=== PATIENT | female | born 2000 | race Caucasian/White ===

== ENCOUNTER 2023-06-12 17:43 | Emergency (ER) | payer OTHER, MEDICARE, SELFPAY ==
--- NOTE | 2023-06-12 23:37 | ED.GENMED ---
History of Present Illness
General
Chief Complaint: Eye Problems
Source: patient
Exam Limitations: none
Time Seen by Provider: 06/12/23 18:07
Nursing documentation reviewed up to this point in time: agreed with
Travel History
Have you had any contact with someone who has COVID-19?: No
Do you have any symptoms of coronavirus? Fever > 100 degrees, chills, cough, shortness of breath, sore throat, loss of taste or smell, muscle aches, or headache?: No
History of Present Illness
History of Present Illness:
Patient accidentally hit over right orbit by sons head. States her contact dislodged and she cant remove it. Brought selft to ED for eval. I njury occurred just [employer].
Past History
Past History
ED Past Medical History: Asthma, Psychiatric and Other (ADHD, posttraumatic stress disorder, anxiety, depression, Cystitis, Ovarian cyst)
ED Past Surgical History: None
Social History
Tobacco: Vaping
Alcohol: Occasional
Drug: None
Personal: Single
Living: with family
Review of Systems
Review of Systems
Allergies reviewed?: Yes
All Other Systems: ROS reviewed and negative except as documented in HPI and ROS
Constitutional: Reports no symptoms
EENT: Reports other (right eye foreign body sensation. Unable to remove contact lens)
Musculoskeletal: Reports no symptoms
Skin: Reports no symptoms
Neurological: Reports no symptoms
Psychiatric: Reports no symptoms
Phy Exam
General Physical Exam
General Presentation: well appearing and mild distress
General age: appears stated age
General Skin: warm and dry
General Habitus: normal
General Mental: alert
Eye Exam
Eye Exam: PERRL, EOMI, cornea clear, conjunctiva normal, globe normal and other (Lids everted. COntact removed from under right upper lid with qtip. Contact was split in half. Both pieces retrieved. Eye stained, examined under slit lamp, no
abrasion noted.)
Eye Exam General: PERRL: bilateral
Conjunctival Changes: right: watery discharge
Cornea Exam: foreign body: Right (contact lens)
Type of Exam: slit lamp, simple and fluorescein
Musculoskeletal Exam
Musculoskeletal Exam: full ROM and neuro vasc intact
Skin Exam
Skin Exam: normal color, warm/dry and no rash
Psychiatric Exam
Psychiatric Exam: normal mood/affect
Course
Orders/Labs/Results
Orders:
Orders
06/12/23 18:14
Fluorescein Sodium [Ful-Anita] 1 mg .ROUTE .STK-MED ONE
Tetracaine HCl [Tetracaine 0.5% Ophthalmic Solution] 1 drop .ROUTE .STK-MED ONE
Vital Signs
Initial and Last Documented VS:
Initial Vital Signs
Temp Pulse Resp BP Pulse Ox
99.8 F 112 16 140/91 97
06/12/23 17:44 06/12/23 17:44 06/12/23 17:44 06/12/23 17:44 06/12/23 17:44
Last Documented Vital Signs
Temp Pulse Resp BP Pulse Ox
99.8 F 112 16 140/91 97
06/12/23 17:44 06/12/23 17:44 06/12/23 17:44 06/12/23 17:44 06/12/23 17:44
*Critical Care Note
Total Time (30-74mins, 75-104mins- exclusive of procedures): Not Applicable
ED Attending Note
-
Portions of this chart may have been created with voice recognition software.� Occasional wrong word or��sound alike� substitutions may have occurred due to the inherent limitations of voice recognition software.
Discharge Plan
Departure
Patient Disposition: Home (Routine Discharge)
Date of Disposition: 06/12/23
Time of Disposition: 18:20
Patient with high blood pressure during this ER visit?: No
Condition: Good
Covid-19: Not Applicable
Discharge Problem:
Contact lens stuck
Instructions: Foreign Body in Eye (DC)
Prescriptions:
No Action
clonazepam 0.5 MG tablet
0.5 mg PO DAILY
dexmethylphenidate [Focalin XR] 35 MG capsule,ER biphasic 50-50
35 mg PO DAILY
lurasidone [Latuda] 20 MG tablet
40 mg PO DAILY
95-iron [id number] [ + DHA] 1 EACH combo pack
1 ea PO DAILY
Activity Restrictions/Additional Instructions:
Keep contacts out for 24 hours. Follow up with your eye doctor as needed.
Interventions
Interventions:
*Risk Screen - Suicide Last Done: 06/12/23 18:42
*General Assessment Last Done: 06/12/23 17:44
*Neglect/Abuse Screening Last Done: 06/12/23 18:42
ED- Fall Risk Assessment Last Done: 06/12/23 18:43
*ED COVID-19 Vaccine History Last Done: 06/12/23 17:44
*Nursing Disposition Last Done: 06/12/23 18:42
Discharge Date and Time
Discharge Date/Time: 06/12/23 18:43
== END 2023-06-12 18:43 | disposition home or self-care (01) ==
LOC: EMR 17:43
PROVIDERS: EMERGENCY PHYSICIAN Nurse Practitioner; FAMILY PHYSICIAN Family Medicine
DX: T15.91XA Foreign body on external eye, part unspecified, right eye, initial encounter (principal); W44.G9XA Other non-organic objects entering into or through a natural orifice, initial encounter; Y77.11 Contact lens associated with adverse incidents; F17.290 Nicotine dependence, other tobacco product, uncomplicated
CPT/HCPCS: 99283

== ENCOUNTER 2024-04-20 06:09 | Emergency (ER) | payer OTHER, MEDICARE, SELFPAY ==
[2024-04-20 06:55] LABS: COVID-19 Antigen Negative (Negative)
[2024-04-20] MEDS: TORADOL 15 MG IV (07:54)
--- NOTE | 2024-04-20 07:58 | ED.GENMED ---
History of Present Illness
General
Chief Complaint: Chest Problem
Source: patient
Exam Limitations: none
Time Seen by Provider: 04/20/24 07:01
Nursing documentation reviewed up to this point in time: agreed with
History of Present Illness
History of Present Illness:
Patient with history of exercise-induced asthma, presents to ED secondary to persistent cough, shortness of breath, and left-sided chest pain over the past 1 month. Patient states that her symptoms started after her child got sick. Patient was
evaluated by her primary care physician and was empirically started on Zithromax yesterday with potential pneumonia. Denies fever or chills. Denies nausea, vomiting, or diarrhea. However, patient does report decreased appetite. Denies leg pain
or swelling. Denies recent travel or surgery.
Past History
Past History
ED Past Medical History: Asthma, Psychiatric and Other (ADHD, posttraumatic stress disorder, anxiety, depression, Cystitis, Ovarian cyst)
ED Past Surgical History: None
Social History
Tobacco: Vaping
Alcohol: Occasional
Drug: None
Personal: Single
Living: with family
Review of Systems
Review of Systems
Allergies reviewed?: Yes
All Other Systems: ROS reviewed and negative except as documented in HPI and ROS
Constitutional: Reports no symptoms; Denies fever or chills
EENT: Reports no symptoms
Respiratory: Reports cough and trouble breathing
Cardiac: Reports chest pain
ABD/GI: Reports no symptoms
: Reports no symptoms
Musculoskeletal: Reports no symptoms
Skin: Reports no symptoms
Neurological: Reports no symptoms
Phy Exam
Physical Exam
Physical Exam:
Physical Exam
General: no apparent distress, not acutely ill. afebrile
Head: nc/at. eomi
Neck: supple. no meningeal signs. normal posterior pharynx
Heart: s1/s2 regular rate and rhythm, no murmur. equal radial pulses.
Lungs: no acute respiratory distress. clear bilaterally
Abdomen: normal bowel sounds. not tender.
Neuro: alert and oriented. no focal neurological deficits
Skin: no rash
Psychiatric: well kept. interactive and cooperative
Extremities: no edema. no calf tenderness.
Course
Orders/Labs/Results
Orders:
Orders
04/20/24 06:23
COVID-19 Antigen Urgent
Source: Nasal Swab
Influenza A+B Rapid Molecular Urgent
DARRICK Source: Nasal Swab
Specimen Description:
04/20/24 07:25
0.9% Sodium Chloride 1000 ml [Nss] 1,000 ml IV BOLUS
Albuterol Nebs [Ventolin Nebules] 2.5 mg INH R NOW STA
Ketorolac [Toradol] 15 mg IV NOW STA
Prednisone [Deltasone] 50 mg PO NOW STA
CR Chest - 2 Views Urgent
Comment:
Reason For Exam: cough/cp
04/20/24 07:26
Test Result ONCE
04/20/24 07:27
Guaifenesin/Codeine Solution [Robitussin AC] 10 ml PO NOW STA
04/20/24 07:53
Basic Metabolic Panel Urgent
Bordetella Pertussis IgA,G,M [S] Urgent
Complete Blood Count/With Diff Urgent
D-Dimer Urgent
HCG, Serum Qualitative Screen Urgent
Magnesium Urgent
04/20/24 08:44
Electrocardiogram (*1) Urgent
Reason for Study: QTc Monitoring
EKG- Treatment ONCE
Abnormal Lab Results
04/20/24
07:53
Hgb 10.2 L g/dL
(12.0-16.0)
Hct 33.7 L %
(37.0-47.0)
MCV 70.1 L fL
(81.0-99.0)
MCH 21.2 L pg
(27.0-31.0)
MCHC 30.3 L g/dL
(33.0-37.0)
RDW 16.1 H %
(11.5-14.5)
Plt Count 401 H 10^3/uL
(130-400)
Glucose 113 H mg/dl
(70-99)
04/20/24 07:53
04/20/24 07:53
Vital Signs
Initial and Last Documented VS:
Initial Vital Signs
Temp Pulse Resp BP Pulse Ox
98.4 F 96 18 149/104 100
04/20/24 06:12 04/20/24 06:12 04/20/24 06:12 04/20/24 06:12 04/20/24 06:12
Last Documented Vital Signs
Temp Pulse Resp BP Pulse Ox
98.4 F 85 22 112/69 98
04/20/24 06:12 04/20/24 09:18 04/20/24 09:18 04/20/24 09:18 04/20/24 09:18
MDM/Problems Addressed
MDM/Problems Addressed:
Patient reports significant improvement in symptoms after treatment. Patient with an unremarkable, in ED, including blood work (d-dimer) and chest x-ray. As patient is currently taking Effexor, will check EKG to make sure there is no prolonged QT,
as patient has been prescribed Zithromax, which she will continue.
EKG: NSR. Normal QT
Pertussis test pending. Patient otherwise is afebrile, hemodynamically stable, and without any significant respite distress, at time of discharge. Will advise continual PCP follow-up as an outpatient.
*EKG
Interpreted by ED Provider?: Yes
EKG Intrepretation Date: 04/20/24
Heart Rate: 78
Rate: normal
Rhythm: sinus
[place]: normal axis
Interval: normal interval
QRS Pattern: normal QRS
*Critical Care Note
Total Time (30-74mins, 75-104mins- exclusive of procedures): Not Applicable
ED Attending Note
-
Portions of this chart may have been created with voice recognition software.� Occasional wrong word or��sound alike� substitutions may have occurred due to the inherent limitations of voice recognition software.
Discharge Plan
Departure
Patient Disposition: Home (Routine Discharge)
Date of Disposition: 04/20/24
Time of Disposition: 08:46
Patient with high blood pressure during this ER visit?: Yes
Discharge Problem:
Bronchitis
Instructions: Bronchitis, Adult ED
Prescriptions:
New
prednisone 50 mg tablet
50 mg PO DAILY Qty: 2 0RF
dextromethorphan-guaifenesin [Cough-Chest Congestion DM] 5-100 mg/5 mL liquid
10 ml PO Q8H PRN (Reason: Cough) Qty: 500 0RF
No Action
clonazepam 0.5 MG tablet
0.5 mg PO DAILY
dexmethylphenidate [Focalin XR] 35 MG capsule,ER biphasic 50-50
35 mg PO DAILY
lurasidone [Latuda] 20 MG tablet
40 mg PO DAILY
95-iron [id number]-[id number]-[id number] [ + DHA] 1 EACH combo pack
1 ea PO DAILY
Referrals:
Enrico Callaway MD [Family Provider] -
Activity Restrictions/Additional Instructions:
As discussed, please follow-up with your primary care physician for reevaluation. Your prescriptions have been sent electronically to the [facility] pharmacy in [place].
Interventions
Interventions:
*Risk Screen - Suicide Last Done: 04/20/24 06:12
*General Assessment Last Done: 04/20/24 09:08
*Neglect/Abuse Screening Last Done: 04/20/24 09:08
*ED COVID-19 Vaccine History Last Done: 04/20/24 09:08
*Nursing Disposition Last Done: 04/20/24 09:18
ED- Cardiac Assessment Last Done: 04/20/24 09:10
ED- Pulmonary Assessment Last Done: 04/20/24 09:11
Discharge Date and Time
Discharge Date/Time: 04/20/24 09:20
Print Language: MAORI
[2024-04-20] MEDS: DELTASONE 50 MG PO (07:59)
[2024-04-20] MEDS: ROBITUSSIN AC 10 ML PO (07:59)
[2024-04-20] MEDS: NSS 1000 IV (07:59)
[2024-04-20] MEDS: VENTOLIN NEBULES 2.5 MG INH (08:02)
[2024-04-20 08:15] LABS: % Basophils 0.3 % (0-2); % Eosinophils 1.1 % (0-6); % Immature Granulocytes 0.4 % (0-0.5); % Lymphocytes 34.8 % (20.5-51.1); % Monocytes 4.7 % (1.7-9.3); % Neutrophils 58.7 % (42.2-75.2); Absolute Eosinophils 0.1 10^3/uL (0-0.7); Absolute Lymphocytes 3.2 10^3/uL (1.2-3.4); Absolute Monocytes 0.4 10^3/uL (0.1-0.6); Absolute Neutrophils 5.4 10^3/uL (1.4-6.5); Hematocrit 33.7 % (37.0-47.0); Hemoglobin 10.2 g/dL (12.0-16.0); Mean Corp Hgb Conc. 30.3 g/dL (33.0-37.0); Mean Corpuscular Hgb 21.2 pg (27.0-31.0); Mean Corpuscular Volume 70.1 fL (81.0-99.0); Mean Platelet Volume 10.1 fL (7.4-10.4); Nucleated Red Blood Cells % 0 %; Platelet Count 401 10^3/uL (130-400); Red Blood Cell Count 4.81 10^6/uL (4.20-5.40); Red Cell Dist. Width 16.1 % (11.5-14.5); White Blood Cell Count 9.2 10^3/uL (4.8-10.8)
[2024-04-20 08:20] LABS: HCG, Serum Qualitative Screen Negative
[2024-04-20 08:22] LABS: Blood Urea Nitrogen 9 mg/dl (7-17); Calcium 9.2 mg/dl (8.4-10.2); Carbon Dioxide 26 mmol/L (22-30); Chloride 103 mmol/L (98-107); Estimated Creatinine Clearance > 125 ml/min; Glucose 113 mg/dl (70-99); Magnesium 1.9 mg/dl (1.6-2.3); Potassium 3.9 mmol/L (3.5-5.1); Sodium 142 mmol/L (135-145); eGFR > 60.00
[2024-04-20 08:23] LABS: D-Dimer 0.33 ug/mlFEU (0.00-0.50)
[2024-04-22 15:23] LABS: Bordetella Pertussis Ab, IgA 0.5 IV (<=1.1); Bordetella Pertussis Ab, IgG 3.53 IV (<=1.04); Bordetella Pertussis Ab, IgM 1.2 IV (<=1.1)
[2024-04-23 07:33] LABS: B. Pertussis, IgG IB FHA Positive; B. Pertussis, IgG IB PT Equivocal; B. Pertussis, IgG IB PT100 Negative
== END 2024-04-20 09:20 | disposition home or self-care (01) ==
LOC: EMR 06:09
PROVIDERS: Student in an Organized Health Care Education/Training Program; EMERGENCY PHYSICIAN Emergency Medicine; FAMILY PHYSICIAN Family Medicine
DX: J40 Bronchitis, not specified as acute or chronic (principal); F17.290 Nicotine dependence, other tobacco product, uncomplicated; Z11.52 Encounter for screening for COVID-19; R03.0 Elevated blood-pressure reading, without diagnosis of hypertension
CPT/HCPCS: 99285; 96374; 96361 ×2; 94640; 71046; 80048; 83735; 84703; 85025; 85379; 86615; 87502; 87811; 93005

== ENCOUNTER 2024-08-15 15:03 | Emergency (ER) | payer MEDICARE, OTHER, SELFPAY ==
--- NOTE | 2024-08-15 15:27 | ED.SKININJ ---
HPI-Injury
General
Chief Complaint: Skin Problem
Source: patient
Exam Limitations: none
Time Seen by Provider: 08/15/24 15:20
Nursing documentation reviewed up to this point in time: agreed with
History of Present Illness-Injury
Is this injury a work related problem?: No
Is pt an associate of [facility]?: No
Initial Injury comments:
Patient to ED for eval of pain and swelling to right upper medial eyelid. Symptoms startedyesterday. Brought self to ED for eval.
Past History
Past History
ED Past Medical History: Asthma, Psychiatric and Other (ADHD, posttraumatic stress disorder, anxiety, depression, Cystitis, Ovarian cyst)
ED Past Surgical History: None
Social History
Tobacco: Vaping
Alcohol: Occasional
Drug: None
Personal: Single
Living: with family
Review of Systems
Review of Systems
Allergies reviewed?: Yes
All Other Systems: ROS reviewed and negative except as documented in HPI and ROS
Constitutional: Reports no symptoms
EENT: Reports other (pain and swelling to right upper medial eyelid)
Skin: Reports no symptoms (erythema and swelling to right upper medial eyelid)
Neurological: Reports no symptoms
Psychiatric: Reports no symptoms
Phy Exam
General Physical Exam
General Presentation: well appearing and no apparent distress
General age: appears stated age
General Skin: warm and dry
General Habitus: normal
General Mental: alert
Eye Exam
Eye Exam: PERRL, EOMI, conjunctiva normal and globe normal
Conjunctival Changes: bilateral: none
Eyelid Exam: sty-hordeolum: Right (small. RIght upper medial eyelid. No orbital erythema or swelling.)
Musculoskeletal Exam
Musculoskeletal Exam: full ROM
Skin Exam
Skin Exam: normal color, warm/dry and no rash
Psychiatric Exam
Psychiatric Exam: normal mood/affect
Course
Orders/Labs/Results
Orders:
Orders
08/15/24 15:25
Tobramycin 0.3% [Tobrex 0.3% Eye Ointment] See Dose Instructions OPHTH NOW STA
Vital Signs
Initial and Last Documented VS:
Initial Vital Signs
Temp Pulse Resp BP Pulse Ox
98.2 F 113 20 169/93 98
08/15/24 15:06 08/15/24 15:06 08/15/24 15:06 08/15/24 15:06 08/15/24 15:06
Last Documented Vital Signs
Temp Pulse Resp BP Pulse Ox
98.2 F 113 20 169/93 98
08/15/24 15:06 08/15/24 15:06 08/15/24 15:06 08/15/24 15:06 08/15/24 15:06
*Critical Care Note
Total Time (30-74mins, 75-104mins- exclusive of procedures): Not Applicable
Update Note
Update Note:
Right medial upper lid stye. Minimal erythema and swelling. EOMI, PERRL. No orbital erythema or swelling. No evidence of periorbital cellulitis.
ED Attending Note
-
Portions of this chart may have been created with voice recognition software.� Occasional wrong word or��sound alike� substitutions may have occurred due to the inherent limitations of voice recognition software.
Discharge Plan
Departure
Patient Disposition: Home (Routine Discharge)
Date of Disposition: 08/15/24
Time of Disposition: 15:25
Patient with high blood pressure during this ER visit?: No
Condition: Good
Covid-19: Not Applicable
Discharge Problem:
Hordeolum externum (stye)
Instructions: Stye
Prescriptions:
New
Tobrex 0.3 % ointment
1 applic ophthalmic (eye) Q4H Qty: 3.5 0RF
No Action
clonazepam 0.5 MG tablet
0.5 mg PO DAILY
dexmethylphenidate [Focalin XR] 35 MG capsule,ER biphasic 50-50
35 mg PO DAILY
lurasidone [Latuda] 20 MG tablet
40 mg PO DAILY
95-iron amx-[id number]-dyo [ + DHA] 1 EACH combo pack
1 ea PO DAILY
prednisone 50 mg tablet
50 mg PO DAILY Qty: 2 0RF
dextromethorphan-guaifenesin [Cough-Chest Congestion DM] 5-100 mg/5 mL liquid
10 ml PO Q8H PRN (Reason: Cough) Qty: 500 0RF
Activity Restrictions/Additional Instructions:
Return to the emergency department immediately for any changes in/worsening of your symptoms
Interventions
Interventions:
*General Assessment Last Done: 08/15/24 15:06
Discharge Date and Time
Print Language: SPANISH
[2024-08-15] MEDS: TOBREX 0.3% EYE OINTMENT 1 APPLIC OPHTH (16:07)
--- NOTE | 2024-08-15 16:10 | EDRN ---
administration intern R eye archie.
== END 2024-08-15 16:14 | disposition home or self-care (01) ==
LOC: EMR 15:03
PROVIDERS: EMERGENCY PHYSICIAN Emergency Medicine; FAMILY PHYSICIAN Family Medicine
DX: H00.011 Hordeolum externum right upper eyelid (principal); J45.909 Unspecified asthma, uncomplicated; F17.290 Nicotine dependence, other tobacco product, uncomplicated
CPT/HCPCS: 99283

== ENCOUNTER 2025-01-07 17:53 | Emergency (ER) | payer MEDICARE, OTHER, SELFPAY ==
[2025-01-07 18:21] LABS: Hematocrit 29.4 % (37.0-47.0); Hemoglobin 8.7 g/dL (12.0-16.0); Mean Corp Hgb Conc. 29.6 g/dL (33.0-37.0); Mean Corpuscular Volume 64.9 fL (81.0-99.0); Nucleated Red Blood Cells % 0 %; Platelet Count 519 10^3/uL (130-400); Red Cell Dist. Width 19.1 % (11.5-14.5)
[2025-01-07 18:44] LABS: ALT (SGPT) 47 U/L (0-35); AST (SGOT) 33 U/L (14-36); Albumin 4.6 g/dl (3.5-5.0); Alkaline Phosphatase 94 U/L (38-126); Blood Urea Nitrogen 14 mg/dl (7-17); Calcium 9.4 mg/dl (8.4-10.2); Carbon Dioxide 25 mmol/L (22-30); Chloride 106 mmol/L (98-107); Glucose 92 mg/dl (70-99); Iron 22 ug/dl (37-170); Potassium 4.2 mmol/L (3.5-5.1); Sodium 139 mmol/L (135-145); Total Protein 7.2 g/dl (6.3-8.2); eGFR > 60.00
--- NOTE | 2025-01-07 22:03 | ED.GENMED ---
History of Present Illness
<Shanice Regalado MD, Resident - Last Filed: 01/08/25 00:54>
General
Chief Complaint: Abnormal Lab Value
Source: patient
Time Seen by Provider: 01/07/25 21:15
History of Present Illness
History of Present Illness:
Padma is a 24-year-old female with exercise-induced asthma and anxiety who presents to the ED per PCP for low iron levels and possible blood transfusion ISO 6 months of vaginal bleeding. Padma states that since June, she has been having
heavy menstrual bleeding requiring every 2 hour changes of ultra tampons. She states that during her last PCP visit this prior week, her iron levels came back very low (13) and hemoglobin had dropped 13-9.7. Her PCP called her and recommended that
Padma come to the ED for further evaluation and treatment. Padma states that prior to the of her son 4 years ago, she was having regular periods. However, over the last 2 years she has had intermittent cycles of amenorrhea followed by
heavy bleeding for 3 to 5 months. She states that this current cycle is her worst yet. She has been feeling fatigued, winded, chest palpitations, and had an episode of syncope lasting 30 seconds yesterday witnessed by her fianc�. She also states
that she is on Zepbound and has lost around 40 pounds in the last 5 months. Padma has tried to see an [employer] for her menstrual bleeding, however is not been able to get an appointment soon enough. She was last seen by her SALESPERSON JEWELRY about a year
ago, at which point she brought up her menstrual pattern. She states that they worked her up for PCOS and other endocrine problems, and she was negative for that workup. She also states that she had a CT A/P done a year ago that showed a right
ovarian cyst. Today, she endorses chest pressure, right upper quadrant pain, and SOB/dizziness on exertion. She does not take any OCPs or other contraception forearms. Prior to her bleeding since June, she was sexually active with the same
partner.
Past History
<Shanice Regalado MD, Resident - Last Filed: 01/08/25 00:54>
Past History
ED Past Medical History: Asthma, Psychiatric and Other (ADHD, posttraumatic stress disorder, anxiety, depression, Cystitis, Ovarian cyst)
ED Past Surgical History: None
Social History
Tobacco: Vaping
Alcohol: Occasional
Drug: None
Personal: Single
Living: with family
Phy Exam
<Shanice Regalado MD, Resident - Last Filed: 01/08/25 00:54>
General Physical Exam
General Presentation: well appearing and no apparent distress
General Skin: warm and dry
General Habitus: obese
General Hydration: appears well hydrated
Cardiovascular Exam
Cardiovascular Exam: regular rate/rhythm, no edema and no murmur
Pulmonary Exam
Pulmonary Exam: lungs clear and no respiratory distress
Gastrointestinal Exam
Gastrointestinal Exam: normal bowel sounds, non tender, soft and non distended
Course
<Shanice Regalado MD, Resident - Last Filed: 01/08/25 00:54>
Orders/Labs/Results
Orders:
Orders
01/07/25 18:12
CMP [Comprehensive Metabolic Panel] Urgent
Complete Blood Count/With Diff Urgent
HCG, Serum Qualitative Screen Urgent
Comment: ADD ON
Iron Urgent
01/07/25 21:13
Add On- LAB Urgent
Tests Added?: qual hcg
01/07/25 21:57
US Pelvis W Transvag Combined Urgent
Reason For Exam: vaginal bleeding, pain
01/08/25 00:30
Ferric Gluconate [Ferrlecit] 125 mg 0.9% Sodium Chloride 100 ml [Nss] 100 ml IV ONCE
01/08/25 00:51
Tranexamic Acid [Cyklokapron] 1,300 mg PO TID STA
Abnormal Lab Results
01/07/25
18:12
WBC 11.9 H 10^3/uL
(4.8-10.8)
Hgb 8.7 L g/dL
(12.0-16.0)
Hct 29.4 L %
(37.0-47.0)
MCV 64.9 L fL
(81.0-99.0)
MCH 19.2 L pg
(27.0-31.0)
MCHC 29.6 L g/dL
(33.0-37.0)
RDW 19.1 H %
(11.5-14.5)
Plt Count 519 H 10^3/uL
(130-400)
Absolute Neuts (auto) 8.3 H 10^3/uL
(1.4-6.5)
Iron 22 L ug/dl
(37-170)
ALT 47 H U/L
(0-35)
01/07/25 18:12
01/07/25 18:12
Vital Signs
Initial and Last Documented VS:
Initial Vital Signs
Temp Pulse Resp BP Pulse Ox
99.1 F 107 18 131/85 99
01/07/25 18:01 01/07/25 18:01 01/07/25 18:01 01/07/25 18:01 01/07/25 18:01
Last Documented Vital Signs
Temp Pulse Resp BP Pulse Ox
98.6 F 92 18 108/79 99
01/07/25 21:34 01/07/25 21:34 01/07/25 21:34 01/08/25 02:00 01/08/25 02:08
Chanellt;Leon Spencer DO - Last Filed: 01/08/25 19:33>
Orders/Labs/Results
Orders:
Orders
01/07/25 18:12
CMP [Comprehensive Metabolic Panel] Urgent
Complete Blood Count/With Diff Urgent
HCG, Serum Qualitative Screen Urgent
Comment: ADD ON
Iron Urgent
01/07/25 21:13
Add On- LAB Urgent
Tests Added?: qual hcg
01/07/25 21:57
US Pelvis W Transvag Combined Urgent
Reason For Exam: vaginal bleeding, pain
01/08/25 00:30
Ferric Gluconate [Ferrlecit] 125 mg 0.9% Sodium Chloride 100 ml [Nss] 100 ml IV ONCE
01/08/25 00:51
Tranexamic Acid [Cyklokapron] 1,300 mg PO TID STA
Abnormal Lab Results
01/07/25
18:12
WBC 11.9 H 10^3/uL
(4.8-10.8)
Hgb 8.7 L g/dL
(12.0-16.0)
Hct 29.4 L %
(37.0-47.0)
MCV 64.9 L fL
(81.0-99.0)
MCH 19.2 L pg
(27.0-31.0)
MCHC 29.6 L g/dL
(33.0-37.0)
RDW 19.1 H %
(11.5-14.5)
Plt Count 519 H 10^3/uL
(130-400)
Absolute Neuts (auto) 8.3 H 10^3/uL
(1.4-6.5)
Iron 22 L ug/dl
(37-170)
ALT 47 H U/L
(0-35)
01/07/25 18:12
01/07/25 18:12
Vital Signs
Initial and Last Documented VS:
Initial Vital Signs
Temp Pulse Resp BP Pulse Ox
99.1 F 107 18 131/85 99
01/07/25 18:01 01/07/25 18:01 01/07/25 18:01 01/07/25 18:01 01/07/25 18:01
Last Documented Vital Signs
Temp Pulse Resp BP Pulse Ox
98.6 F 92 18 108/79 99
01/07/25 21:34 01/07/25 21:34 01/07/25 21:34 01/08/25 02:00 01/08/25 02:08
<Shanice Regalado MD, Resident - Last Filed: 01/08/25 00:54>
MDM/Problems Addressed
MDM/Problems Addressed:
Padma is a 24-year-old female with exercise-induced asthma and anxiety who presents to the ED per PCP for low iron levels and possible blood transfusion ISO 6 months of vaginal bleeding.
Pelvic/Transvaginal US:
Nabothian cysts are present within the cervix.
No evidence for uterine or endometrial mass. Endometrial stripe measures 12 mm, with no focal abnormality identified.
Normal appearance of both ovaries. No evidence for abnormal adnexal mass or free pelvic fluid.
#Chronic Vaginal Bleeding
#Low Iron
#Low Hemoglobin
Hgb 8.7, Iron 22 in ED. HDS.
- HCG (-)
- Pelvic US as above
- IV ferric gluconate and 1300 mg TXA once now
- TXA 1300 mg 3 times daily for 5 days
- Follow-up outpatient with [facility] (previously saw them in 2022)
<Shanice Regalado MD, Resident - Last Filed: 01/08/25 00:54>
*Pulse Oximetry
SaO2: 100
Oxygen Mode of Delivery: Room air
Patient hypoxic: no
*Critical Care Note
Total Time (30-74mins, 75-104mins- exclusive of procedures): Not Applicable
ED Attending Note
<Shanice Regalado MD, Resident - Last Filed: 01/08/25 00:54>
-
Portions of this chart may have been created with voice recognition software.� Occasional wrong word or��sound alike� substitutions may have occurred due to the inherent limitations of voice recognition software.
<Leon YaquelinKennedy Spencer, DO - Last Filed: 01/08/25 19:33>
ED Attending Note
ED Attending Note:
I agree with Dr. Regalado's note.
Pt with heavy vaginal bleeding (5 maximum aborption tampoons a day) for the past month. Pt has had iisues with heavy vag bleeding in the past. She has not called her [facility]. Instructed to come to ER by pcp due to very low iron level. She does state
she becomes dizzy when standing. + syncopal event yesterday. No chest pain.
General: Awake, Alert, Oriented X3. No acute distress.
Vitals: unremarkable
Head: Atraumatic
Eyes: Pupils equal, EOMI
Throat: Airway intact, no exudates
Neck: Trachea midline
Lungs: Clear and equal b/l
Heart: Regular rate, no murmurs
Abd: Soft, mild pelvic tenderness, No pulsatile mass
Rectal:
Neuro: non-focal
Skin: Warm, dry, no rash
Extremities: pulses equal b/l, no edema
Hgb 8.7 Not an indication for tx.
Dr. Regalado discussed pt with [facility]---> u/s and further plans from there.
Discharge Plan
Departure
Patient Disposition: Home (Routine Discharge)
Date of Disposition: 01/08/25
Time of Disposition: 00:47
Patient with high blood pressure during this ER visit?: No
Discharge Problem:
Abnormal vaginal bleeding, Low iron, Hemoglobin low
Prescriptions:
New
tranexamic acid 650 mg tablet
1,300 mg PO TID 5 Days Qty: 30 0RF
Rx Instructions:
Take 2 tabs 3 times daily for 5 days.
No Action
clonazepam 0.5 MG tablet
0.5 mg PO DAILY
dexmethylphenidate [Focalin XR] 35 MG capsule,ER biphasic 50-50
35 mg PO DAILY
lurasidone [Latuda] 20 MG tablet
40 mg PO DAILY
95-iron qir-aljfr-vrn [ + DHA] 1 EACH combo pack
1 ea PO DAILY
prednisone 50 mg tablet
50 mg PO DAILY Qty: 2 0RF
dextromethorphan-guaifenesin [Cough-Chest Congestion DM] 5-100 mg/5 mL liquid
10 ml PO Q8H PRN (Reason: Cough) Qty: 500 0RF
Tobrex 0.3 % ointment
1 applic ophthalmic (eye) Q4H Qty: 3.5 0RF
Referrals:
UNKNOWN - PT DOES,NOT KNOW [Unknown Provider]
Shobha Knight MD [Active, Gynecology] - Call in 1-3 days for appt
Referral Note: Follow-up with [facility] about your chronic vaginal bleeding. Call and make an appointment.
Interventions
Interventions:
*Risk Screen - Suicide Last Done: 01/07/25 18:01
*General Assessment Last Done: 01/07/25 21:30
*Neglect/Abuse Screening Last Done: 01/07/25 18:01
*ED- Fall Risk Assessment Last Done: 01/07/25 21:30
*ED COVID-19 Vaccine History Last Done: 01/07/25 21:30
*Nursing Disposition Last Done: 01/08/25 02:12
Discharge Date and Time
Discharge Date/Time: 01/08/25 02:14
Print Language: MAORI
[2025-01-07 22:09] LABS: HCG, Serum Qualitative Screen Negative
[2025-01-08] MEDS: FERRLECIT 110 MG IV (00:46)
[2025-01-08] MEDS: CYKLOKAPRON 1300 MG PO (02:02)
== END 2025-01-08 02:14 | disposition home or self-care (01) ==
LOC: EMR 17:53
PROVIDERS: Physician Assistant Medical; EMERGENCY PHYSICIAN Emergency Medicine; FAMILY PHYSICIAN Family Medicine
DX: N93.8 Other specified abnormal uterine and vaginal bleeding (principal); E61.1 Iron deficiency; D64.9 Anemia, unspecified; J45.990 Exercise induced bronchospasm; E66.9 Obesity, unspecified; Z68.41 Body mass index [BMI] 40.0-44.9, adult; F90.9 Attention-deficit hyperactivity disorder, unspecified type; F41.9 Anxiety disorder, unspecified; F32.A Depression, unspecified; N83.201 Unspecified ovarian cyst, right side; F17.290 Nicotine dependence, other tobacco product, uncomplicated
CPT/HCPCS: 99284; 96374; 76830; 76856; 80053; 83540; 84703; 85025; J2916

== ENCOUNTER 2025-02-21 19:26 | Emergency (ER) | payer MEDICARE, OTHER, SELFPAY ==
[2025-02-21 19:52] LABS: Hematocrit 23.7 % (37.0-47.0); Hemoglobin 7.1 g/dL (12.0-16.0); Mean Corp Hgb Conc. 30.0 g/dL (33.0-37.0); Mean Corpuscular Volume 63.7 fL (81.0-99.0); Nucleated Red Blood Cells % 0 %; Platelet Count 469 10^3/uL (130-400); Red Cell Dist. Width 18.4 % (11.5-14.5)
[2025-02-21 20:13] LABS: HCG, Serum Qualitative Screen Negative
[2025-02-21 20:19] LABS: ALT (SGPT) 75 U/L (0-35); AST (SGOT) 42 U/L (14-36); Albumin 4.3 g/dl (3.5-5.0); Alkaline Phosphatase 115 U/L (38-126); Blood Urea Nitrogen 12 mg/dl (7-17); Calcium 9.0 mg/dl (8.4-10.2); Carbon Dioxide 25 mmol/L (22-30); Chloride 107 mmol/L (98-107); Glucose 86 mg/dl (70-99); Potassium 4.1 mmol/L (3.5-5.1); Sodium 138 mmol/L (135-145); Total Protein 6.9 g/dl (6.3-8.2); eGFR > 60.00
--- NOTE | 2025-02-21 20:26 | ED.GENMED ---
History of Present Illness
General
Chief Complaint: Abnormal Lab Value
Source: patient
Time Seen by Provider: 02/21/25 20:09
History of Present Illness
History of Present Illness:
This patient is a 24-year-old female presents emergency department with heavy vaginal bleeding that she has been experiencing for several years but particular over the last couple of months. Patient was last here in December, and actually received
TXA which she took for several days after discharge. This helped control her bleeding. In follow-up she was advised to start OCP and her bleeding then resumed. Bleeding is extremely heavy associated with many clots and she is changing her tampon
at least once an hour with an associated pad. In December her hemoglobin was 8.7. She was referred to the emergency department today due to her new symptoms and her hemoglobin today is 7.1. Patient describes increasing episodes of dyspnea on
exertion, lightheadedness with upright position, generalized fatigue, increasing sleep. She reports having a syncopal event after getting up out of bed on morning, no syncope since then. No head strike. She denies chest pain, abdominal
pain, back pain, or other complaints.
Past History
Past History
ED Past Medical History: Asthma, Psychiatric and Other (ADHD, posttraumatic stress disorder, anxiety, depression, Cystitis, Ovarian cyst)
ED Past Surgical History: None
Social History
Tobacco: Vaping
Alcohol: Occasional
Drug: None
Personal: Single
Living: with family
Phy Exam
Physical Exam
Physical Exam:
GENERAL: Alert , in no apparent distress but pale appearing
EYE: pupils equal and reactive, conjunctiva pale
NECK: Supple, no significant adenopathy.
ENT: o/p clr, mmm.
CARDIAC: Regular rate and rhythm .
LUNGS: Clear breath sounds bilaterally, no acute respiratory distress, no wheezes/rales/rhonchi
ABDOMEN: Soft, without focal tenderness, no r/g, no cvat
NEUROLOGICAL: Alert and oriented, no focal neuro deficits
SKIN: Warm and dry, skin intact.
MUSCULOSKELETAL: No edema, well perfused.
PSYCH: Normal and appropriate interaction.
Course
Orders/Labs/Results
Orders:
Orders
02/21/25 19:34
Electrocardiogram (*1) Urgent
Reason for Study: Chest Pain
EKG- Treatment ONCE
Test Result ONCE
02/21/25 19:43
Complete Blood Count/With Diff Urgent
Comprehensive Metabolic Panel Urgent
HCG, Serum Qualitative Screen Urgent
02/21/25 20:37
Tranexamic Acid [Cyklokapron] 1,300 mg PO NOW STA
02/21/25 20:44
* Blood Bank Products Routine
Blood Bank Products: *Packed RBC Leuko (PRBC's
Quantity: 1
Transfuse Today: Yes
Is product needed for scheduled surgery?: Yes
Expected Surgery Date: tomorrow
Reason: Bleeding
IV Insert/Care/Rem.- Treatment PRN
02/21/25 20:52
Medroxyprogesterone [Provera] 10 mg PO NOW STA
02/21/25 20:58
Type+Screen Urgent
Abnormal Lab Results
02/21/25 02/21/25
19:43 20:58
WBC 13.9 H 10^3/uL
(4.8-10.8)
RBC 3.72 L 10^6/uL
(4.20-5.40)
Hgb 7.1 L g/dL
(12.0-16.0)
Hct 23.7 L %
(37.0-47.0)
MCV 63.7 L fL
(81.0-99.0)
MCH 19.1 L pg
(27.0-31.0)
MCHC 30.0 L g/dL
(33.0-37.0)
RDW 18.4 H %
(11.5-14.5)
Plt Count 469 H 10^3/uL
(130-400)
Absolute Neuts (auto) 9.6 H 10^3/uL
(1.4-6.5)
Absolute Lymphs (auto) 3.7 H 10^3/uL
(1.2-3.4)
AST 42 H U/L
(14-36)
ALT 75 H U/L
(0-35)
Crossmatch IS Only See Detail
02/21/25 19:43
02/21/25 19:43
Vital Signs
Initial and Last Documented VS:
Initial Vital Signs
Temp Pulse Resp BP Pulse Ox
98.7 F 115 22 130/87 94
02/21/25 19:31 02/21/25 19:31 02/21/25 19:31 02/21/25 19:31 02/21/25 19:31
Last Documented Vital Signs
Temp Pulse Resp BP Pulse Ox
98.9 F 84 20 114/71 98
02/21/25 23:49 02/21/25 23:49 02/21/25 23:49 02/21/25 23:49 02/21/25 23:49
*Pulse Oximetry
SaO2: 94
Patient hypoxic: no
*Critical Care Note
Total Time (30-74mins, 75-104mins- exclusive of procedures): 30
Update Note
Update Note:
Patient presents to the Emergency Department with ___vaginal bleeding with lightheadedness, syncope, dyspnea, etc.
Number and Complexity of Problems Addressed at the Encounter
� Chronic conditions affecting care:
� Acute Exacerbation and/or Progression of Chronic Illness:
� Differential Diagnosis includes: But not limited to anemia, dysfunctional uterine bleeding, fibroids, etc. etc.
Amount and/or Complexity of Data to be Reviewed and Analyzed
� I performed an independent evaluation of and my interpretation is:
EKG: Read by me, normal sinus rhythm, normal rate, normal axis, no acute ischemia
CT:
Xrays:
Laboratory Studies: Hemoglobin 7.1, compared to prior from December which is a decrease
Other:
� Review of other/old records reveals:
� Clinical information was obtained by an independent historian:
� Prescriptions/Medications Considered but not given:
� Further testing considered but not performed:
Risk of Complications and/or Morbidity or Mortality of Patient Management
� Social determinants of health affecting care:
� Discussion with other providers (PCP, Hospitalists, Consultants, etc):
� Escalation of care including admission/observation vs risk of discharge considered: Patient remained stable here, heart rate normal, blood pressure normal, upright and walks to bathroom without symptoms. Long discussion with
patient's FORENSIC ANTHROPOLOGIST, Dr. Xiong, aware of labs, history, etc. Agrees with management here, recommends that patient be discharged on Provera and she has an appointment for follow-up with them early next week. This prescription has already been called in
so I emphasized to patient importance of continuing this medication and reasons to return to the ER.
ED Attending Note
-
Portions of this chart may have been created with voice recognition software.� Occasional wrong word or��sound alike� substitutions may have occurred due to the inherent limitations of voice recognition software.
Discharge Plan
Departure
Patient Disposition: Home (Routine Discharge)
Date of Disposition: 02/21/25
Time of Disposition: 23:57
Patient with high blood pressure during this ER visit?: Yes
Condition: Good
Discharge Problem:
Vaginal bleeding, Anemia
Instructions: Heavy periods, Anemia overview, BLOOD PRESSURE
Prescriptions:
No Action
clonazepam 0.5 MG tablet
0.5 mg PO DAILY
dexmethylphenidate [Focalin XR] 35 MG capsule,ER biphasic 50-50
35 mg PO DAILY
lurasidone [Latuda] 20 MG tablet
40 mg PO DAILY
95-iron [id number] [ + DHA] 1 EACH combo pack
1 ea PO DAILY
prednisone 50 mg tablet
50 mg PO DAILY Qty: 2 0RF
dextromethorphan-guaifenesin [Cough-Chest Congestion DM] 5-100 mg/5 mL liquid
10 ml PO Q8H PRN (Reason: Cough) Qty: 500 0RF
Tobrex 0.3 % ointment
1 applic ophthalmic (eye) Q4H Qty: 3.5 0RF
Referrals:
Enrico Callaway MD [Family Provider, Family Practice]
Vandana Xiong DO [Active, Gynecology] - Keep scheduled appt
Activity Restrictions/Additional Instructions:
IF YOU DEVELOP INCREASING BLEEDING, PERSISTENT OR WORSENING DIZZINESS, ANY CHEST PAIN, TROUBLE BREATHING, ABDOMINAL OR PELVIC PAIN, FEVER, OR OTHER WORRISOME SIGNS, PLEASE RETURN TO THE ER IMMEDIATELY! PLEASE TAKE THE PROVERA DIRECTED.
Interventions
Interventions:
*Risk Screen - Suicide Last Done: 02/21/25 19:33
*General Assessment Last Done: 02/21/25 20:41
*Neglect/Abuse Screening Last Done: 02/21/25 19:33
*ED- Fall Risk Assessment Last Done: 02/21/25 20:41
*ED COVID-19 Vaccine History Last Done: 02/21/25 20:41
*ED Influenza Vaccine History Last Done: 02/21/25 20:41
Discharge Date and Time
Print Language: ARABIC
[2025-02-21] MEDS: CYKLOKAPRON 1300 MG PO (20:45)
[2025-02-21] MEDS: PROVERA 10 MG PO (21:00)
--- NOTE | 2025-02-21 22:24 | EDRN ---
1 unit PRBC infusing without incident
== END 2025-02-22 00:27 | disposition home or self-care (01) ==
LOC: EMR 19:26
PROVIDERS: Emergency Medicine; EMERGENCY PHYSICIAN Emergency Medicine; FAMILY PHYSICIAN Family Medicine
DX: N93.9 Abnormal uterine and vaginal bleeding, unspecified (principal); D64.9 Anemia, unspecified; R03.0 Elevated blood-pressure reading, without diagnosis of hypertension; J45.909 Unspecified asthma, uncomplicated; F90.9 Attention-deficit hyperactivity disorder, unspecified type; F43.10 Post-traumatic stress disorder, unspecified; F41.9 Anxiety disorder, unspecified; F32.A Depression, unspecified; F17.290 Nicotine dependence, other tobacco product, uncomplicated
CPT/HCPCS: 99285; 36430; 80053; 84703; 85025; 86850; 86900; 86901; 86920; 93005; P9016